=== PATIENT | female | born 1965 | race Caucasian/White ===

== ENCOUNTER → 2016-07-13 | Outpatient (CLI) | payer BC | END | disposition disaster alternative care site (69) | LOC: GRAD 15:35 | DX: R07.9 Chest pain, unspecified (principal) | CPT/HCPCS: Q9967 ==

== ENCOUNTER → 2016-07-29 | Outpatient (CLI) | payer BC ==
--- NOTE | ~2016-07-29 | ESTC ---
Cardiac Perfusion Imaging Demographics Patient Name ANDRIST MICKIE Roberts Gender Female Patient Number [id number] Race Visit Number [id number] Ethnicity [employer] ID Room Number Accession Number [id number] Height 63 inches Date of 1965 Weight 170 pounds Jad Interpreting SANTOSH León Date of study 07/29/[address] Supervising /MARIA REICH Technologist Jad Ordering Physician Stress Romarion Wylie thin film technician RDCS, RVT Stress ECG Reading Radha Nurse Arnie Meyers RN Physician Jad Krause RN The procedure was explained in detail to the patient. Risks, complications and alternative treatments were reviewed. Written consent was obtained. Medications Reviewed with Patient prior to Procedure. Procedure Procedure Type: Nuclear Stress Test:Cardiolite Stress Test Procedure Start time: 07/29/2016 00:00 Indications: Chest pain. Risk Factors The patient risk factors include:Current/Recent(w/in 1 year) tobacco use, treated hypercholesterolemia, treated hypertension, family history of premature CAD and dyslipidemia. Conclusions Summary Perfusion Images: The overall quality of the study is good. Left ventricular cavity is noted to be normal on the stress and normal on the rest images. There is no evidence of abnormal lung activity. The right ventricle is not visualized an cannot be assessed. Impression ECG portion of exercise stress test is clinically negative for ischemia by diagnostic criteria. Pt achieved 10.6 METS and reached 94% of MPHR. Myocardial perfusion imaging is essentially normal. Overall left ventricular systolic function was normal without regional wall motion abnormalities. Calculated LVEF is 73% and TID ratio is 0.91. There are no previous studies for comparison. Stress Protocols Resting ECG Within normal limits. Pre-stress physical exam: Patient assessed by Dr Mcpherson prior to testing. Stress Protocol:Exercise Predicted HR: 169 bpm ECG Findings No ECG changes suggestive of ischemia. T wave inversion in lead 3 Arrhythmias Rare PVCs Symptoms No cardiovascular symptoms with maximal exercise. Rt shoulder pain at peak exercise Stress Interpretation ECG portion of stress test is negative for ischemia by diagnostic criteria. Appropriate hemodynamic response to exercise. No significant ST-T wave changes with exercise. EKG portion is negative for ischemia by diagnostic criteria. The Leon Treadmill score was 9 .This corresponds to a low risk stress test. Imaging Results Summed scores - Summed stress score: 8 - Summed rest score: 8 - Summed difference score: 0 Stress ejection Ejection fraction:73 % EDV :99 ml ESV :27 ml Stroke volume :72 ml LV mass :146 gr Imaging Protocols Rest Stress Isotope:Tc99m Sestamibi IV Isotope: Tc99m Sestamibi IV Isotope dose:12.3 mCi Isotope dose:35.9 mCi Date:07/29/2016 07:01 Date:07/29/2016 08:55 Technique: SPECT Technique: Gated Supine SPECT Supine Scan Time:30 minutes post injection Scan Time:45-60 minutes post injection Medical History Admission Data Admission date: 07/29/2016 Admission Time: 06:34 Hospital Status: Outpatient. Signatures dtt: JAD MCPHERSON dtd: 07/29/16 0000 Physician Self Edit
== END | disposition disaster alternative care site (69) ==
LOC: GRAD 06:34
DX: R07.9 Chest pain, unspecified (principal); Z82.49 Family history of ischemic heart disease and other diseases of the circulatory system; E78.00 Pure hypercholesterolemia, unspecified; E78.5 Hyperlipidemia, unspecified; I10 Essential (primary) hypertension; Z72.0 Tobacco use
CPT/HCPCS: A9500